=== PATIENT | female | born 1965 | race Caucasian/White ===

== ENCOUNTER 2019-10-27 11:43 | Outpatient (CLI) | payer OTHER, SELFPAY ==
--- NOTE | 2019-10-27 11:51 | MM_ITS ---
WS: [id number] BILATERAL SCREENING DIGITAL MAMMOGRAM WITH CAD HISTORY: SCREENING COMPARISON: None available. Bilateral CC and MLO views submitted. Computer aided detection analyzed. Breast composition: There are scattered areas of fibroglandular density. No suspicious masses, microc alcifications or architectural distortion. Benign calcifications in each breast. MM/[id number] IMPRESSION: BI-RADS: 2-Benign FOLLOW UP: 1 Year Follow-up
== END 2019-10-27 11:44 | disposition home or self-care (01) ==
LOC: RADSHAW 11:45
PROVIDERS: PCP Registered Nurse; Visit Provider Registered Nurse
DX: Z12.31 Encounter for screening mammogram for malignant neoplasm of breast (principal)
CPT/HCPCS: 77067

== ENCOUNTER 2020-10-26 15:09 | Outpatient (CLI) | payer OTHER, SELFPAY ==
--- NOTE | 2020-10-26 15:14 | MM_ITS ---
WS: [id number] BILATERAL SCREENING DIGITAL MAMMOGRAM WITH CAD HISTORY: SCREENING COMPARISON: 10/27/2019, 09/16/2018 Bilateral CC and MLO views submitted. Computer aided detection analyzed. Breast composition: There are scattered areas of fibroglandular density. No suspicious masses, microc alcifications or architectural distortion. Benign calcification central LEFT breast. MM/[id number] IMPRESSION: BI-RADS: 2-Benign FOLLOW UP: 1 Year Follow-up
== END 2020-10-26 15:10 | disposition home or self-care (01) ==
LOC: RADSHAW 15:12
PROVIDERS: PCP Registered Nurse; Visit Provider Registered Nurse
DX: Z12.31 Encounter for screening mammogram for malignant neoplasm of breast (principal)
CPT/HCPCS: 77067

== ENCOUNTER 2021-12-18 13:27 | Outpatient (CLI) | payer OTHER, SELFPAY ==
--- NOTE | 2021-12-18 13:42 | MM_ITS ---
WS: [id number] BILATERAL 3D TOMOSYNTHESIS DIGITAL SCREENING MAMMOGRAPHY WITH CAD CLINICAL INFORMATION: SCREENING HISTORY: Screening mammogram. No current complaints. COMPARISON: October 26, 2020 TECHNIQUE: Bilateral CC and MLO views. FINDINGS: The breasts are composed of heterogeneous fibroglandular density tissue, which can limit the detectio n of small underlying mass lesions. No suspicious mass, asymmetry, calcifications, or architectural d istortion. No evidence of malignancy. Punctate and lucent centered calcifications. MM/[id number] IMPRESSION: BI-RADS: 2-Benign FOLLOW UP: 1 Year Follow-up Recommend return to annual screening mammography.
== END 2021-12-18 13:28 | disposition home or self-care (01) ==
LOC: RAD 13:27
PROVIDERS: PCP Registered Nurse; Visit Provider Registered Nurse
DX: Z12.31 Encounter for screening mammogram for malignant neoplasm of breast (principal)
CPT/HCPCS: 77063; 77067

== ENCOUNTER → 2022-08-14 11:42 | Outpatient (BNVA) | payer OTHER, SELFPAY | PROVIDERS: PCP Registered Nurse; Visit Provider Registered Nurse | DX: Z13.6 Encounter for screening for cardiovascular disorders (principal); Z13.1 Encounter for screening for diabetes mellitus; Z12.11 Encounter for screening for malignant neoplasm of colon; Z00.00 Encounter for general adult medical examination without abnormal findings; Z71.85 Encounter for immunization safety counseling | CPT/HCPCS: 80053; 83036; 85025 ==

== ENCOUNTER 2022-12-05 06:17 | Day surgery (SDC) | payer OTHER, SELFPAY ==
[2022-12-03 13:02] VITALS: BMI 28.3
[2022-12-05 06:33] VITALS: BP 132/98; PULSE 87; RESP 16; TEMP 36.2; O2SAT 98
[2022-12-05 06:39] VITALS: BMI 28.3
--- NOTE | 2022-12-05 06:53 | P.ANESASSM_ITS ---
Pre-Anesthetic Assessment Height/Weight: Height 1.63 m Weight 74.843 kg Temp Pulse Resp BP Pulse Ox O2 Del Method 97.2 F L 87 16 132/98 98 Room Air 12/05/22 06:33 12/05/22 06:33 12/05/22 06:33 12/05/22 06:33 12/05/22 06:33 12/05/22 06:33 Operation Date: 12/05/22 07:30 Proposed Procedures p Colonoscopy 57369,Z12.11(Not Applicable) - Zeeshan Curiel DO Familial anesthetic complications: None Was Beta Elliot taken within 24 hours: N/A Was Clonidine taken within 24 hours: N/A Last intake: Intake Last Liquid Date 12/05/22 Last Liquid Time 18:00 Last Solid Date 12/03/22 Last Solid Time 17:00 Social No alcohol and No tobacco Exam alert, oriented x 3, clear to auscultation bilaterally and regular rate & rhythm Airway Submandibular: within normal limits Cervical ROM: within normal limits Mallampati: Class II Dentition: full History/ROS No significant complaints Pulmonary None reported CV/HEM None reported None reported Hepatic None reported GI None reported Metabolic None reported Musc/skel None reported Neuropsych None reported Anesthetic Plan ASA status: 1 Anesthesia: MAC Risk of > 500 ml blood loss (7ml/kg in children): No Medications/Allergies Home Medications Medication Instructions Recorded Confirmed Last Taken Type vitamin B complex 1 cap PO DAILY 12/03/22 12/05/22 12/04/22 History ascorbic acid (vitamin C) 500 mg 500 mg PO DAILY 12/05/22 12/05/22 12/04/22 History capsule,extended release (Vitamin C) cholecalciferol (vitamin D3) 50 50 mcg PO DAILY 12/05/22 12/05/22 12/04/22 History mcg (2,000 unit) capsule (Vitamin D3) Allergies Allergy/AdvReac Type Severity Reaction Status Date / Time No Known Allergies Allergy Verified 09/13/22 10:10 [facility] Anesthesia Family History (Updated 08/14/22 @ 14:39 by Cheri Monge LPN) Sister Cancer, Onset Age: 63 breast Denies family history of Diabetes CAD (coronary artery disease) Dementia Chronic kidney disease (CKD) Lung disease Hypertension Stroke Social History (Updated 08/14/22 @ 14:39 by Cheri Monge LPN) Smoking and tobacco status: never smoked Alcohol intake: never Substance/Drug Use: never Adopted: No Caregiver/support person: No Lives independently: No Household members: spouse Marital status: service: No Current occupational status: employed Sexually active: Yes Do you think of yourself as: Straight/Heterosexual Current gender identity: Female Data Anesthesia Cardiac Studies: No Data to Display
[2022-12-05] MEDS: sodium chloride 0.9% 1,000 ML 30 ML IV (07:01)
--- NOTE | 2022-12-05 07:26 | P.HP_ITS ---
Providers/Chief Complaint Primary Care Provider: RODRI Vega Chief Complaint: Z12.11 History of Present Illness Rebecca Aden is a 57 year old female Here for her first screening colonoscopy. She denies any family history of colon cancer, abdominal pain, nausea, emesis, diarrhea, constipation, hematochezia and/or melena Review of Systems General: Reports: 10 or more systems reviewed and unremarkable except in HPI and below Medications/Allergies Home Medications Medication Instructions Recorded Confirmed Last Taken Type vitamin B complex 1 cap PO DAILY 12/03/22 12/05/22 12/04/22 History ascorbic acid (vitamin C) 500 mg 500 mg PO DAILY 12/05/22 12/05/22 12/04/22 H istory capsule,extended release (Vitamin C) cholecalciferol (vitamin D3) 50 50 mcg PO DAILY 12/05/22 12/05/22 12/04/22 History mcg (2,000 unit) capsule (Vitamin D3) Allergies Allergy/AdvReac Type Severity Reaction Status Date / Time No Known Allergies Allergy Verified 09/13/22 10:10 PFSH Acute PFSH: Family History Sister Cancer, Onset Age: 63 breast Denies family history of Diabetes CAD (coronary artery disease) Dementia Chronic kidney disease (CKD) Lung disease Hypertension Stroke Social History Smoking and tobacco status: never smoked Alcohol intake: never Substance/Drug Use: never Adopted: No Caregiver/support person: No Lives independently: No Household members: spouse Marital status: service: No Current occupational status: employed Sexually active: Yes Do you think of yourself as: Straight/Heterosexual Current gender identity: Female Vitals/I&O/Wt Last Vital Signs Temp 97.2 F L 12/05/22 06:33 Pulse 87 12/05/22 06:33 Resp 16 12/05/22 06:33 BP 132/98 12/05/22 06:33 Pulse Ox 98 12/05/22 06:33 O2 Del Method Room Air 12/05/22 06:33 Weight last 48 hrs Weight 165 lb Weight 165 lb A&P Assessment and plan (1) Colon cancer screening: Attestations Medical Necessity Statement*: HOME Coding Level of Care Code Acute Code for Chg Fwd Diagnoses Colon cancer screening Z12.11
[2022-12-05 07:58] VITALS: BP 115/74; PULSE 71; RESP 16; TEMP 36.1; O2SAT 96
[2022-12-05 08:08] VITALS: BP 112/75; PULSE 73; RESP 16; O2SAT 99
--- NOTE | 2022-12-05 08:09 | ANE.PACU2 ---
Inpatient post-anesthesia follow up: Vital signs: Temperature 97 F Pulse Rate 71 Respiratory Rate 16 Blood Pressure 115/74 Pulse Oximetry 96 Oxygen Delivery Me thod Room Air Oxygen Flow Rate Fraction of Inspir ed Oxygen Hydration adequate: Yes Nausea and vomiting: No Pain level: Other (none) Mental status: Baseline
[2022-12-05 08:16] VITALS: BP 123/90; PULSE 80; RESP 16; O2SAT 98
== END 2022-12-05 08:30 | disposition home or self-care (01) ==
PROVIDERS: PCP Registered Nurse; Visit Provider Surgery
PROC: 0DJD8ZZ Inspection of Lower Intestinal Tract, Via Natural or Artificial Opening Endoscopic (ICD-10-PCS; CPT 45378; principal; 2022-12-05 07:30)
DX: Z12.11 Encounter for screening for malignant neoplasm of colon (principal)
CPT/HCPCS: 45378; J2704; J7030

== ENCOUNTER 2023-08-02 09:12 | Outpatient (CLI) | payer OTHER, SELFPAY ==
--- NOTE | 2023-08-02 09:24 | MM_ITS ---
WS: [id number] BILATERAL SCREENING DIGITAL TOMOSYNTHESIS MAMMOGRAM WITH CAD HISTORY: SCREENING COMPARISON: 12/18/2021, 10/26/2020 and 08/23/2016 Bilateral CC and MLO views with tomosynthesis and synthetic mammography submitted. Computer aided det ection analyzed. Breast composition: There are scattered areas of fibroglandular density. No suspicious masses, microc alcifications or architectural distortion. Stable asymmetries and calcifications. MM/[id number] IMPRESSION: BI-RADS: 2-Benign FOLLOW UP: 1 Year Follow-up
== END 2023-08-02 09:13 | disposition home or self-care (01) ==
LOC: RAD 09:12
PROVIDERS: PCP Registered Nurse; Visit Provider Registered Nurse
DX: Z12.31 Encounter for screening mammogram for malignant neoplasm of breast (principal); R92.323 Mammographic fibroglandular density, bilateral breasts; N64.89 Other specified disorders of breast; R92.1 Mammographic calcification found on diagnostic imaging of breast
CPT/HCPCS: 77063; 77067

== ENCOUNTER 2024-08-28 12:27 | Outpatient (CLI) | payer OTHER, SELFPAY ==
--- NOTE | 2024-08-28 12:35 | MM_ITS ---
WS: [id number] BILATERAL 3D TOMOSYNTHESIS DIGITAL SCREENING MAMMOGRAPHY WITH CAD CLINICAL INFORMATION: SCREENING HISTORY: Screening mammogram. No current complaints. COMPARISON: 2023 TECHNIQUE: Bilateral CC and MLO views. FINDINGS: The breasts are composed of heterogeneous fibroglandular density tissue, which can limit the detection of small underlying mass lesions. No suspicious mass, asymmetry, calcifications, or architectural distortion. No evidence of malignancy. Incidental punctate calcifications. MM/MM [facility] tomosynthesis [id number] IMPRESSION: DENSITY: The breasts are heterogeneously dense, which may obscure small masses. BI-RADS: 2 - Benign FOLLOW UP: 1 Year Follow-up Recommend return to annual screening mammography.
== END 2024-08-28 12:28 | disposition home or self-care (01) ==
LOC: RAD 12:29
PROVIDERS: PCP Registered Nurse; Visit Provider Registered Nurse
DX: Z12.31 Encounter for screening mammogram for malignant neoplasm of breast (principal)
CPT/HCPCS: 77063; 77067